=== PATIENT | male | born 1985 | race Caucasian/White ===

== ENCOUNTER 2024-06-15 19:28 | Emergency (ER) | payer MEDICAID, SELFPAY ==
[2024-06-15 19:42] VITALS: BP 150/80; PULSE 72; RESP 18; TEMP 36.6; O2SAT 98; BMI 25.6
--- NOTE | 2024-06-15 19:48 | XR_ITS ---
Examination: CT abdomen and pelvis without contrast. Coronal 3-D reconstructions. Sagittal 2-D reconstructions. Date and time of exam:June 15, 2024 at 2000 hrs. Indications: Intermittent right-sided flank pain beginning 3 days ago Comparison: October 30, 2020 CTDI: vol (mGy): 8.90 DLP: (mGycm): 563 Technique: Axial images of the abdomen have been obtained, 3 mm slice thickness Intravenous contrast material has not been administered. Low dose protocols were performed. One or more of the following dose reduction techniques were used; automated exposure control, adjustment of the mA and/or KV according to patient size, use of iterative reconstruction technique. Findings: No focal liver or splenic lesion Contracted gallbladder No pancreatic mass Bilateral renal calculi 1 to 3 mm Mild right hydronephrosis, 4 mm distal right ureterovesical junction calculus Normal appendix No bowel obstruction or diverticulitis Contracted urinary bladder Advanced degenerative disc disease L5-S1 Impression: Mild right hydronephrosis secondary to 4 mm distal right ureterovesical junction calculus
--- NOTE | 2024-06-15 19:48 | PD.EDRME ---
Rapid Medical Screening Exam RME Arrival date/time: 06/15/24 19:28 39-year-old male with a history of hyperlipidemia presents to the emergency room with a chief complaint of right-sided flank pain that radiates down to the right groin x 1 hour I have greeted and performed a focused initial assessment of this patient. A comprehensive ED assessment and evaluation of the patient, analysis of all test results, and completion of the medical decision making process will be conducted by additional ED providers. Chief Complaint: Abdominal Pain Vital signs: Vital Signs Temperature 97.9 F 06/15/24 19:42 Pulse Rate 72 06/15/24 19:42 Respiratory Rate 18 06/15/24 19:42 Blood Pressure 150/80 H 06/15/24 19:42 Pulse Oximetry (%) 98 06/15/24 19:42 Oxygen Delivery Method Room Air 06/15/24 19:42 Vital signs reviewed by provider: Yes
[2024-06-15] MEDS: KETOROLAC INJ 60 MG/2 ML VIAL 30 MG IM (20:06)
[2024-06-15 20:25] LABS: Basophils % (Auto) 1 % (0-2.5); Eosinophils # (Auto) 0.2 Thou/mm3 (0.0-0.5); Eosinophils % (Auto) 3 % (0-10); Hematocrit 43.4 % (41.0-53.0); Hemoglobin 14.8 g/dL (13.5-16.0); Immature Granulocytes % (Auto) 0 % (0-0); Immature Granulocytes Auto 0.02 Thou/mm3 (0.00-0.00); Lymphocytes # (Auto) 2.9 Thou/mm3 (1.0-4.8); Lymphocytes % (Auto) 36 % (10-50); Mean Corpuscular HGB Conc 34.1 g/dl (31.0-37.0); Mean Corpuscular Hemoglobin 28.5 pg (25.0-35.0); Mean Corpuscular Volume 84 fL (80-100); Monocytes # (Auto) 0.6 Thou/mm3 (0.0-0.8); Monocytes % (Auto) 8 % (0-12); Neutrophils # (Auto) 4.1 Thou/mm3 (1.8-7.7); Neutrophils % (Auto) 52 % (37-80); Nucleated Red Blood Cell % 0 /100 WBC (0); Platelet Count 256 Thou/mm3 (140-440); RDW Standard Deviation 38.4 fL (35.1-43.9); Red Blood Count 5.19 Miln/mm3 (4.50-5.90); White Blood Count 7.9 Thou/mm3 (3.8-10.6)
[2024-06-15 20:41] LABS: Alanine Aminotransferase 29 U/L (10-49); Albumin, Serum 4.7 gm/dL (3.5-5.0); Albumin/Globulin Ratio 1.6 (1.2-2.2); Alkaline Phosphatase 83 U/L (46-116); Anion Gap 8 (7-16); Aspartate Amino Transferase 22 U/L (0-34); BUN/Creatinine Ratio 14 Ratio (12-20); Bilirubin,Total 0.5 mg/dL (0.3-1.2); Blood Urea Nitrogen 17 mg/dL (9-23); Calcium 9.7 mg/dL (8.3-10.6); Calcium (Corrected) 9.7 mg/dL (8.5-10.1); Carbon Dioxide 31.3 mMol/L (20.0-31.0); Chloride 102 mMol/L (98-107); Creatinine (Component) 1.2 mg/dL (0.6-1.3); Estimated Creatinine Clearance 92.5 mL/min (>60); Glucose 144 mg/dL (74-106); Lipase 48 U/L (12-53); Osmolality,Calculated 285 (275-295); Potassium 3.2 mMol/L (3.4-5.1); Sodium 141 mMol/L (136-145); Total Protein 7.7 gm/dL (5.7-8.2); eGFR > 60 See Note
[2024-06-15 21:05] LABS: Collection Type, Urine Clean Catch; Squamous Epithelial Cell,Urine 0 /hpf (0-5)
[2024-06-15 21:28] LABS: Bilirubin,Urine Negative (Negative); Blood,Urine 3+ (Negative); Clarity,Urine Clear (Clear/Hazy); Color,Urine Yellow (Lt Yel-Yel); Glucose, Urine Negative (Negative); Ketones,Urine Negative (Negative); Leukocyte Esterase,Urine Negative (Negative); Nitrite,Urine Negative (Negative); Protein,Urine Trace (Neg - Trace); RBC,Urine 369 /hpf (0-3); Specific Gravity,Urine 1.029 (1.001-1.035); Urobilinogen,Urine Negative mg/dL (0.0-1.0); WBC,Urine 2 /hpf (0-5)
[2024-06-15] MEDS: POTASSIUM CHLORIDE 20 mEq TABCR 40 MEQ PO (21:55)
--- NOTE | 2024-06-15 22:01 | PD.EDABDPN ---
ED Abdominal Pain RME/HPI General Chief Complaint: Abdominal Pain Stated complaint: RIGHT FLANK PAIN Time seen by provider: 06/15/24 21:50 Arrival date/time: 06/15/24 19:28 RME / HPI RME / HPI narrative: 39-year-old male patient came in for evaluation regarding right flank pain. Onset of symptoms since last night as right flank pain, pain radiates to the right groin and right testicle, severity moderate. Denies any dysuria denies any fever denies any vomiting denies any other complaints. Patient has a history of kidney stone in the past. Patient also denies any hematuria. Related Data Home Medications ?Medication ?Instructions ?Recorded ?Confirmed atorvastatin 20 mg tablet 20 mg PO QDAY 05/21/23 05/21/23 ibuprofen 600 mg tablet 600 mg PO .PRN PRN 05/21/23 05/21/23 Previous Rx's ?Medication ?Instructions ?Recorded ketorolac 10 mg tablet 10 mg PO Q8H PRN pain 5 days #20 06/15/24 tabs tamsulosin 0.4 mg capsule (Flomax) 0.4 mg PO QDAY #10 caps 06/15/24 Allergies Allergy/AdvReac Type Severity Reaction Status Date / Time pistachio nut Allergy Verified 12/08/21 17:40 walnut Allergy Verified 12/08/21 17:37 Review of Systems Review of Systems Narrative Review of Systems: Review of system reviewed and within normal limits except mentioned in HPI ED Exam Narrative Physical exam: VITAL SIGNS: Reviewed. GENERAL APPEARANCE: Alert and interactive, follows commands, no acute distress, HEAD AND FACE: Non-traumatic. ENT: PERRL, pink conjunctivitis, eyelid no trauma, Mucous membrane moist. NECK: Supple, nontender, no nuchal rigidity. CHEST: No tenderness, no crepitus, no paradoxical movement, no retractions. LUNGS: Clear, well ventilated, symmetric, no rales, no wheezing, no ronchi, no stridor, good breath sounds bilaterally. HEART: Regular rate, regular rhythm, no murmur, no gallops. ABDOMEN: Soft, positive bowel sounds, nondistended, no guarding, right lower quadrant tenderness, no rebound, no masses, RECTAL: Deferred. GENITAL: Deferred. NEUROLOGICAL: Gross motor function intact sensory function intact, Appropriate for age. MUSCULOSKELETAL: low back nontender, full range of motion. EXTREMITIES: Nontender, full range of motion. SKIN: Color pink, dry, no rash, no lacerations, no abrasions, no contusions. LYMPHATICS: Deferred. Course Quality Measures none Orders Category Date Time Status CT abdomen pelvis wo con Stat Exams 06/15/24 19:48 Completed CBC Stat Lab 06/15/24 20:10 Completed CMP [Comprehensive Metabolic Panel] Stat Lab 06/15/24 20:10 Completed Lipase Stat Lab 06/15/24 20:10 Completed UA [Urinalysis] Stat Lab 06/15/24 20:48 Completed Urine Culture Stat Lab 06/15/24 20:48 Received Ketorolac Inj [Toradol Inj] Med 06/15/24 19:48 Discontinued 30 mg IM X1 ONE Potassium Chloride [K-Dur] Med 06/15/24 21:50 Discontinued 40 meq PO X1 ONE Vital Signs Vital signs: Vital Signs Temperature 97.9 F 06/15/24 19:42 Pulse Rate 72 06/15/24 19:42 Respiratory Rate 18 06/15/24 19:42 Blood Pressure 150/80 H 06/15/24 19:42 Pulse Oximetry (%) 98 06/15/24 19:42 Oxygen Delivery Method Room Air 06/15/24 19:42 Abdominal Pain MDM MDM Narrative MDM Narrative:: 39-year-old male patient came in for evaluation regarding right flank pain. Onset of symptoms since last night as right flank pain, pain radiates to the right groin and right testicle, severity moderate. Denies any dysuria denies any fever denies any vomiting denies any other complaints. Patient has a history of kidney stone in the past. Patient also denies any hematuria. Laboratory workup is significant for hematuria no UTI noted. No leukocytosis also noted. CT scan of the abdomen and pelvis showed 4 mm right distal UVJ junction stone. With mild hydronephrosis. Results discussed with the patient. Prior to discharge patient told me that his pain is totally gone after Toradol IM. Patient data External records reviewed:: None Clinical information provided by:: patient Social determinants that could affect healthcare access:: none Patient has the following chronic illnesses:: History of kidney stone How is presenting disease/condition affected by chronic disease/condition?: exacerbated by Evaluation data The following diagnostics were reviewed and interpreted by me:: lab results and radiology exam(s) Lab and/or radiology exams considered but not ordered:: None Interpretation Summary: Potassium was noted to be 3.2, urinalysis positive hematuria no UTI. CT scan of the abdomen showed mild hydronephrosis secondary to 4 mm right UPJ junction stone. Medications / Prescriptions Medications or Prescriptions considered but not ordered:: None Medication administrations:: Medication Administration History Discontinued Medications Ketorolac Tromethamine (Ketorolac Inj 60 Mg/2 Ml Vial) 30 mg IM X1 ONE Stop: 06/15/24 19:49 Last Admin: 06/15/24 20:06 Dose: 30 mg Documented By: CB Potassium Chloride (Potassium Chloride 20 Meq Tabcr) 40 meq PO X1 ONE Stop: 06/15/24 21:51 Last Admin: 06/15/24 21:55 Dose: 40 meq Documented By: CVL Potassium and Toradol Consultations Consultation(s) initiated? (list below): No Diagnosis Differential diagnosis abdominal pain: abdominal pain, calculus of kidney and small bowel obstruction Most likely diagnosis given after review of the tests above:: Right ureterolithiasis Admission Indicated Admission indicated?: not indicated Explain why admission is indicated or not indicated:: Stable for discharge Admission Request Was there a request for admission?: No Disposition Plan Disposition Plan: Discharge Discharge Attestation Discharge Attestation: The patient was given an opportunity to ask questions and understood the discharge instructions. Discharge instructions specifically effects, indications for sooner follow up or return to the emergency department, and the expected course of current diagnosis. Patient condition: Stable Discharge Plan Plan Patient Disposition: HOME (Self Care) Disposition Comment: Stable Prescriptions/Referrals Prescriptions/Med Rec: New ketorolac 10 mg tablet 10 mg PO Q8H PRN (Reason: pain) 5 Days Qty: 20 0RF tamsulosin [Flomax] 0.4 mg capsule 0.4 mg PO QDAY Qty: 10 0RF No Action atorvastatin 20 mg tablet 20 mg PO QDAY ibuprofen 600 mg tablet 600 mg PO .PRN PRN Referrals: Braydon Hernandez MD [Primary Care Provider] - In 1 week Problem List Clinical Impression: Ureterolithiasis Patient/Caregiver Discharge Instructions Discharge Activity: activity as tolerated Education Materials: ED Kidney Stone w/ Colic Additional Instructions: Thank you for the opportunity for serving you today. You are stable for discharged . You are advised to: Follow-up with your PCP in 1 to 2 days and as per referral to urologist Return to ED for worsening of symptoms Increase oral fluids Take medication as prescribed Print Language: Stateless Stand Alone Forms: Karley Award Info., Patient Portal Info Letter PA/RAIL ENGINEER Supervising Physician PAULO/YENY Supervising Physician: MD Yaima
[2024-06-15 22:08] VITALS: RESP 18
== END 2024-06-15 22:08 | disposition home or self-care (01) ==
PROVIDERS: Nurse Practitioner Family; Emergency Provider Emergency Medicine; PCP Internal Medicine
DX: N13.2 Hydronephrosis with renal and ureteral calculous obstruction (principal)
CPT/HCPCS: 36415; 74176; 80053; 81001; 83690; 85025; 87086; 87186; 96372; 99284; J1885; A9270